=== PATIENT | female | born 1955 | race Hispanic/Latino ===

== ENCOUNTER 2017-05-10 13:03 | Outpatient (CLI) | payer BC ==
--- NOTE | 2017-05-10 17:54 | CT ---
CT TEMPORAL BONES NONCONTRAST: 05/10/17 HISTORY: 61-year-old female with R42, dizziness, headache, and worsening right sided hearing loss. FINDINGS: There is asymmetrical mild effacement of the left fossa of Rosenmuller (lateral pharyngeal recess). This is nonspecific. There are degenerative changes at the bilateral TMJs, moderate on the right and severe on the left. The jugular bulbs, carotid canals, internal auditory canals, cochleas, vestibules, vestibular aquedu cts, semicircular canals, facial nerve canals, and ossicles, have normal morphology. The bilateral m iddle ear cavities and mastoid antra are clear. There is opacification of a few of the right inferio r mastoid air cells, and approximately half of the left mastoid air cells, consistent with mastoid e ffusions. There is no erosion or displacement of the ossicles. Scutum is intact bilaterally. No ben s dehiscence of the tegmen tympani or tegmen mastoideum. There is no dehiscence of the superior semi circular canals. In the left petrous bone, abutting the superior surface of the left internal audito ry canal, there is a well circumscribed, but irregularly shaped lucency measuring approximately 7 x 5 x 4 mm (coronal image 100 of 163, series 602, and axial image 73 of 126, series 4). Etiology is un certain. It does not have an aggressive appearance. A portion of it contacts the dural surface of th e intracranial cavity, while the inferior portion of this contacts the IAC. IMPRESSION: 1. Nonspecific, nonaggressive-appearing lucent lesion in the left petrous bone as described abo ve. Etiology and significance are uncertain. 2. Left mastoid effusion. 3. No other abnormality of inner ear structures identified. 4. Osteoarthrosis of the bilateral temporomandibular joints, severe on left and moderate on rig ht. POS: [facility]
== END 2017-05-10 13:04 | disposition home or self-care (01) ==
LOC: SCSCT 13:03
PROVIDERS: ATTEND Otolaryngology Otology & Neurotology
DX: R42 Dizziness and giddiness (principal); M89.9 Disorder of bone, unspecified; H74.8X2 Other specified disorders of left middle ear and mastoid; M26.69 Other specified disorders of temporomandibular joint
CPT/HCPCS: 70480

== ENCOUNTER 2017-10-30 10:12 | Outpatient (CLI) | payer BC ==
[~2017-10-30 10:12] MED LIST: Gadobenate Dimeglumine 529 MG/1 ML (20ML VIAL) ONE
[2017-10-30 10:43] LABS: Estimated GFR-MDRD - POC Greater than 90
--- NOTE | 2017-10-30 13:43 | MRI ---
BRAIN MRI WITH AND WITHOUT CONTRAST: Date: 10/30/17 COMPARISON: 09/17/16. CORRELATION: IAC/temporal bone CT from 05/10/17. HISTORY: Acoustic neuroma. Dizziness. Headache. TECHNIQUE: Brain and internal auditory canal MRI performed with and without intravenous Gadolinium administratio n. Multisequential, multiplanar imaging is performed. FINDINGS: Appropriate T1 marrow signal intensity of the calvarium. Midline brain parenchymal structures are unr emarkable. No significant T2 or FLAIR white matter hyperintensities. Central arterial flow-voids are maintained. Absent restricted diffusion. Adequate aeration of the paranasal sinuses. Partial opacification of the left mastoid air cells. Righ t mastoid air cells are adequately aerated. No pathologic enhancement of the brain parenchyma. Dural based enhancing focus in the right frontal region, measuring 1.6 cm. Findings are compatible wi th a small meningioma. This finding is unchanged from the previous examination. There is symmetric signal intensity in the visualized internal auditory canal and inner ear structure s. There is symmetric signal intensity without abnormal enhancement in the 7th/8th, as well as 5th crani al nerve complexes. IMPRESSION: 1. Incidental meningioma along the right frontal convexity. 2. No MR evidence of acoustic neuroma. POS: [facility]
== END 2017-10-30 10:13 | disposition home or self-care (01) ==
LOC: SCSMRI 10:12
PROVIDERS: ATTEND Otolaryngology Otology & Neurotology
DX: D33.3 Benign neoplasm of cranial nerves (principal)
CPT/HCPCS: 70553; 82565; A9579

== ENCOUNTER 2018-01-13 09:54 | Outpatient (CLI) | payer BC ==
--- NOTE | 2018-01-14 11:45 | MMO ---
BILATERAL SCREENING MAMMOGRAM: HISTORY: Annual screening exam. COMPARISON: 11/14/15, 03/11/12 studies. Films are reviewed with the assistance of computer-aided detection. FINDINGS: Breasts are predominantly fatty replaced. Benign calcifications in both breasts appear stable. IMPRESSION: BI-RADS category 2 - benign findings. BIRADS 2: Benign Finding(s) Routine annual screening mammography (for women over age 40) POS: [facility]
== END 2018-01-13 09:55 | disposition home or self-care (01) ==
LOC: SCSMAMMO 09:54
PROVIDERS: ATTEND Family Medicine
DX: Z12.31 Encounter for screening mammogram for malignant neoplasm of breast (principal)
CPT/HCPCS: 77067

== ENCOUNTER 2018-01-20 11:05 | Outpatient (CLI) | payer BC ==
--- NOTE | 2018-01-20 12:52 | RAD ---
SEVEN VIEWS OF THE LUMBAR SPINE: Date: 01-20-18 Comparison: None. History: Pain and popping in the back for the last three weeks. FINDINGS: Clips in the right upper quadrant suggest prior cholecystectomy. Five lumbar type vertebral bodies are present with intact pedicles on frontal imaging. There is mild dextroscoliosis of the upper lumbar spine. Oblique imaging demonstrates no evidence for a pars defect on either side at any level. Neutral later al imaging demonstrates no anterolisthesis or retrolisthesis. With flexion and extension there is no significant anterolisthesis or retrolisthesis. There is facet hypertrophy at L4-5 and L5-S1. There is disc space narrowing with mild anterior osteophyte formation at L2-3 and L5-S1. IMPRESSION: 1. Degenerative disc disease as described above. POS: [facility]
== END 2018-01-20 11:06 | disposition home or self-care (01) ==
LOC: SCSRAD 11:05
PROVIDERS: ATTEND Chiropractor
DX: M51.36 Other intervertebral disc degeneration, lumbar region (principal); M47.896 Other spondylosis, lumbar region; M47.897 Other spondylosis, lumbosacral region; M48.061 Spinal stenosis, lumbar region without neurogenic claudication; M48.07 Spinal stenosis, lumbosacral region; M41.9 Scoliosis, unspecified; Z90.49 Acquired absence of other specified parts of digestive tract
CPT/HCPCS: 72100

== ENCOUNTER 2018-03-24 07:08 | Day surgery (SDC) | payer BC ==
[2018-03-21 13:17] VITALS: BMI 37.4
[2018-03-24] MEDS ORDERED: Lidocaine 1% w/Epinephrine 1:100K 30 ML VIAL ONE (08:26)
[2018-03-24] MEDS ORDERED: Bacitracin Zinc Ointment 30 gm TUBE ONE (08:26)
[2018-03-24] MEDS ORDERED: EPINEPHrine 1 MG/ML AMP ONE (08:26)
[2018-03-24] MEDS ORDERED: Ciprofloxacin 0.2% Otic 1 DROP CON ONE (08:26)
[2018-03-24] MEDS ORDERED: Bupivacaine/Epinephrine 0.25% 30 ML VIAL ONE (08:26)
[2018-03-24] MEDS ORDERED: Midazolam HCl 2 mg/2 ml Vial ONE (09:04)
[2018-03-24] MEDS ORDERED: Scopolamine 1.5 mg/72 hour Patch ONE (09:04)
[2018-03-24] MEDS ORDERED: Fentanyl 100 MCG/2 ML VIAL ONE ×2 (09:04→11:10)
[2018-03-24] MEDS ORDERED: CEFAZOLIN/Water 2 GM/20 ML SYRINGE ONE (09:09)
[2018-03-24] MEDS ORDERED: Propofol 500 MG/50 ML VIAL ONE (09:11)
[2018-03-24] MEDS ORDERED: Ketorolac Tromethamine 30 MG/ML VIAL ONE (11:13)
[2018-03-24] MEDS ORDERED: Lidocaine 1% PF 5 ML VIAL ONE (11:36)
[2018-03-24] MEDS ORDERED: Ondansetron HCl/PF 4 MG/2 ML Vial ONE (11:36)
[2018-03-24] MEDS ORDERED: Dexamethasone 20 MG/5 ML VIAL ONE (11:36)
[2018-03-24] MEDS ORDERED: PROPOFOL 200 MG/20 ML VIAL ONE (11:36)
[2018-03-24] MEDS ORDERED: HYDROcodone/Acetaminophen 5/325 mg Tablet ONE (12:32)
--- NOTE | 2018-03-25 06:53 | EKG ---
Test Reason : PREOP Blood Pressure : / mmHG Vent. Rate : 064 BPM Atrial Rate : 064 BPM P-R Int : 138 ms QRS Dur : 090 ms QT Int : 390 ms P-R-T Axes : 000 002 099 degrees QTc Int : 402 ms Normal sinus rhythm Possible Inferior infarct (cited on or before 29-OCT-2014) T wave abnormality, consider anterior ischemia Abnormal ECG When compared with ECG of 03-DEC-2016 08:06, No significant change was found Confirmed by CAMACHO LUCIA ([id number]) on 03/25/2018 6:53:39 AM Referred By: MAE Confirmed By:CAMACHO LUCIA
--- NOTE | 2018-03-25 09:49 | OP ---
DATE OF SURGERY: 03/24/2018 PREOPERATIVE DIAGNOSIS: Right-sided Meniere's disease. PROCEDURES: 1. Right posterior fossa sigmoid sinus decompression. 2. Mastoid obliteration with bone patee repair of posterior fossa. 3. Microscopic surgical procedure. 4. Facial nerve monitoring for 2 hours. POSTOPERATIVE DIAGNOSIS: Right-sided Meniere's disease. SURGEON: Sahil Peraza M.D. ANESTHESIA: General. COMPLICATIONS: None. ESTIMATED BLOOD LOSS: 5 mL. SPECIMENS: None. ASSISTANTS: None. DISPOSITION: Stable to recovery room. SUMMARY: Basic right posterior fossa and sigmoid sinus decompression, have a facial recess rep air with bone patee. PROCEDURE IN DETAIL: Procedure #1: Right posterior fossa decompression, sigmoid sinus decompression: After informed cons ent was obtained, the patient was taken to the operating room and placed in the supine position. Gen eral endotracheal anesthetic was administered. Table was rotated 180 degrees. Right ear was injecte d, postauricular, 0.25% Marcaine with epinephrine. With the right ear draped and prepped with the ea r canal outside of the field, postauricular incision was made with a 10 blade, carried down, reflecte d the ear forward. Pericranial flap was elevated with the Bovie based anteriorly. Retractors placed and the cortical mastoid was performed. Using heather and cutting burrs, decompressed the posterior fossa from the sinodural angle to the retrofacial and a high riding jugular bulb region. All the po sterior fossa with decompression from the identified posterior semicircular canal and decompressed th e sigmoid as well from the sinodural angle inferiorly toward, but not complete decompression of the j ugular bulb. Vascular decompression was performed, because the posterior fossa was so far anterior t hat it made it difficult to visualize it and the decompression of the sigmoid assisted with identific ation of the posterior fossa extensively. Procedure #2: Mastoid obliteration bone patee, which has been harvested from the cortical. Cortical mastoidectomy was placed on the posterior fossa and the sigmoid compressed using Gelfoam and a debi n ball, though the cotton ball was removed from the mastoid. The attic ossicular chain was protected by having a dense packing of Gelfoam and then the wound closed with deep 3-0 Monocryl and Dermabond for the skin. Inspection of the ear canal showed it to be clean and dry and atraumatic. Procedure #3: Microscopic surgical procedure: Throughout the entirety of operation, the microscope was an integral part of the procedure using 2-14 power and high illumination. Procedure #4: Facial nerve monitoring for 2 hours, beginning just after induction. EMG electrodes w ere placed. Orbicularis oculi and orbicularis amos, attached to the nerve integrity monitoring syste m set at a response threshold of 100 microvolts and the stimulus at 0.8 milliamps. The facial nerve was somewhat challenging to find and had a very dense vascular connection between the inferior portio n of it and of the vasculature going in the direction of the jugular bulb. This was cauterized in se ction with the identification and decompression of the posterior fossa. In this area, the facial ner ve was decompressed and taken out of the fallopian canal; however, air remained inside the canal thro ughout the rest of the procedure. With these procedures completed, the patient tolerated them well and was turned over to Anesthesia in a stable condition.
== END 2018-03-24 13:01 | disposition home or self-care (01) ==
LOC: SDC 07:08
PROVIDERS: ATTEND Otolaryngology Otology & Neurotology
PROC: 095 Ear, Nose, Sinus, Destruction (ICD-10-PCS; principal; 2018-03-24)
DX: H81.01 Meniere's disease, right ear (principal); F41.9 Anxiety disorder, unspecified; M19.90 Unspecified osteoarthritis, unspecified site; E11.9 Type 2 diabetes mellitus without complications; E78.00 Pure hypercholesterolemia, unspecified; I10 Essential (primary) hypertension; E55.9 Vitamin D deficiency, unspecified; Z79.82 Long term (current) use of aspirin; Z79.899 Other long term (current) drug therapy; Z79.84 Long term (current) use of oral hypoglycemic drugs
CPT/HCPCS: 85014; 93005; 93010; J0171; J1100; J1885; J2001; J2250; J2405; J2704; J3010; J3490

== ENCOUNTER 2019-02-02 10:49 | Outpatient (CLI) | payer BC ==
--- NOTE | 2019-02-02 12:28 | MRI ---
MRI Lumbar Spine WO Con History: Low back pain Comparison: Radiographs 01/20/2018 Findings: An intraosseous hemangioma L3 vertebral body. Conus medullaris terminates near the inferior endplate of L1. No marrow infiltrative process. The aortic contour is nonaneurysmal. No retroperitoneal periaortic ad enopathy. Incompletely evaluated T2 hyperintense focus left kidney. Levels are as follows: L1/L2: Normal disc hydration. No neural foraminal or spinal canal narrowing. Mild left facet arthropa thy. L2/L3: Circumferential disc bulge. Mild facet arthropathy. Mild effacement of the ventral CSF space w ith the spinal canal measuring approximately 13 mm. Small central annular fissure. Mild bilateral neural foraminal narrowing. L3-4: Mild degenerative disc space height loss with low-grade retrolisthesis. Bilateral subforaminal posterior disc osteophyte complexes. Moderate bilateral neural foraminal narrowing with abutment of the left exiting and traversing nerve root. L4/L5: Small bilateral posterior disc osteophyte complexes. Mild facet arthrosis with facet joint eff usions. Moderate bilateral neural foraminal narrowing. L5/S1: Moderate degenerative disc space height loss posteriorly. Broad-based posterior disc bulge. Mi ld facet arthropathy. Mild bilateral neural foraminal narrowing. There is narrowing of the interspinous space from L3-L5 with endplate sclerosis and remodeling as wel l as adventitial bursa formation at L4/L5. Impression: Mild to moderate degenerative changes as described, greatest at L3/L4.
== END 2019-02-02 10:50 | disposition home or self-care (01) ==
LOC: SCSMRI 10:49
PROVIDERS: ATTEND Family Medicine
DX: M54.41 Lumbago with sciatica, right side (principal); G89.29 Other chronic pain; G25.81 Restless legs syndrome; R29.898 Other symptoms and signs involving the musculoskeletal system; M47.816 Spondylosis without myelopathy or radiculopathy, lumbar region
CPT/HCPCS: 72148

== ENCOUNTER 2022-04-23 17:00 | Outpatient (CLI) | payer MEDICARE, BC | END 2022-04-23 17:01 | disposition home or self-care (01) | LOC: SLEEPLAB 17:00 | PROVIDERS: ATTEND Family Medicine | DX: G47.33 Obstructive sleep apnea (adult) (pediatric) (principal); R53.83 Other fatigue; R09.89 Other specified symptoms and signs involving the circulatory and respiratory systems; R51.9 Headache, unspecified; F41.9 Anxiety disorder, unspecified; E11.9 Type 2 diabetes mellitus without complications; K21.9 Gastro-esophageal reflux disease without esophagitis; R06.83 Snoring; G47.00 Insomnia, unspecified; G47.10 Hypersomnia, unspecified; E66.9 Obesity, unspecified; Z68.41 Body mass index [BMI] 40.0-44.9, adult | CPT/HCPCS: 95811 ==

== ENCOUNTER 2024-07-06 10:47 | Outpatient (CLI) | payer MEDICARE, BC | END 2024-07-06 10:48 | disposition home or self-care (01) | LOC: SCSRAD 10:47 | PROVIDERS: ATTEND Family Medicine | DX: M54.2 Cervicalgia (principal); M54.50 Low back pain, unspecified; M47.812 Spondylosis without myelopathy or radiculopathy, cervical region; M47.816 Spondylosis without myelopathy or radiculopathy, lumbar region | CPT/HCPCS: 72052; 72120 ==